=== PATIENT | female | born 1970 | race Caucasian/White ===

== ENCOUNTER 2017-01-13 21:30 | Emergency (ER) | payer BC ==
[~2017-01-13] VITALS: Ht 162.6 cm; Wt 59.0 kg
[2017-01-13] MEDS ORDERED: ONDANSETRON ODT 4 MG TAB.RAPDIS SL ONE (22:15)
[2017-01-13] MEDS ORDERED: HYDROCODONE/APAP 10-325 MG TABLET PO ONE (22:15)
[2017-01-13] MEDS ORDERED: TDAP DIPH,PERTUSS,TET VAC/PF 0.5 ML DISP.SYRIN IM ONE ×2 (22:15→22:47)
[2017-01-13] MEDS ORDERED: LIDOCAINE HCL 1% 20 ML VIAL TP ONE (22:15)
[2017-01-13] MEDS ORDERED: ONDANSETRON ODT 4 MG TAB.RAPDIS ONE (22:31)
[2017-01-13] MEDS ORDERED: HYDROCODONE/APAP 10-325 MG TABLET ONE (22:32)
--- NOTE | 2017-01-14 00:35 | NUR ---
Patient discharged to home in stable conditon. Written and verbal after care instructions given. Patient verbalizes understanding of instructions.
== END 2017-01-14 00:36 | disposition home or self-care (01) ==
LOC: ER 21:31
DX: S81.811A Laceration without foreign body, right lower leg, initial encounter (principal); S81.812A Laceration without foreign body, left lower leg, initial encounter; W17.89XA Other fall from one level to another, initial encounter; Y93.39 Activity, other involving climbing, rappelling and jumping off; Y92.89 Other specified places as the place of occurrence of the external cause; Y99.8 Other external cause status
CPT/HCPCS: 12005; 90471; 90715; 99284; A4217 ×3; A4663; J3490; Q0162